=== PATIENT | male | born 1960 | race American Indian/Alaskan Native ===

== ENCOUNTER 2019-03-05 08:54 | Day surgery (SDC) | payer OTHER ==
[~2019-03-05 08:54] MED LIST: NACL 0.9% 1000 ML 1,000 ML IV SCH
--- NOTE | 2019-03-05 09:42 | Anesthesia Consultation ---
Anesthesia Consult and Med Hx Date of service: 03/05/19 - Airway Anesthetic Teeth Evaluation: Good, Partials (upper) ROM Head & Neck: Adequate Mental/Hyoid Distance: Adequate Mallampati Class: Class III Intubation Access Assessment: Possibly Difficult - Pre-Operative Health Status ASA Pre-Surgery Classification: ASA3 Proposed Anesthetic Plan: MAC - Cardiovascular System Hx Hypertension: Yes - Endocrine Hx Non-Insulin Dependent Diabetes: Yes - Other Systems Hx Obesity: Yes (BMI 36.7)
--- NOTE | 2019-03-05 09:43 | Anesthesia Day of Surgery ---
Anesthesia Day of Surgery - Day of Surgery Patient Examined: Yes Patient H&P Reviewed: Yes Patient is NPO: Yes
[2019-03-05] MEDS ORDERED: DIPRIVAN 10 MG/ML IV ONE ×2 (10:23)
[2019-03-05] MEDS ORDERED: SUBLIMAZE ONE (10:23)
--- NOTE | 2019-03-05 10:56 | Procedure Note ---
Date of procedure: 03/05/19 Pre-op diagnosis: H/O Colon Polyps/ F/H/O Cancer (sister had Ovarian Cancer(/ Colon,Polyp Scr Post-op diagnosis: other (Cecal Nickolas;yp (cold-snare polypectomy)/Small,Descending Colon Polyp/Mild to Moderate Internal Hemorrhoid) Procedure: Colonoscopy with Cold Snare Polypectomy and Cold Biopsy [place] [facility] [place]: SYBIL MONROE Estimated blood loss: minimal Pathology: list Specimen disposition: to lab Condition: stable Disposition: same day (Avoid aspirin and NSAID for 4 days, otherwise resume home medication and follow up in 1 to 2 weeks ([phone]).)
--- NOTE | 2019-03-05 11:05 | Operative Report ---
PROCEDURE: Colonoscopy with snare polypectomy and cold biopsy. INDICATIONS: This is a 58-year-old -[place] gentleman with a family history of cancer. The patient's sister had ovarian cancer. The patient gives a prior history of colon polyps. Colonoscopy was done because of his prior history of colon polyp, family history of cancer and as part of colon polyp screening. DESCRIPTION OF PROCEDURE: Procedure was done after getting informed consent with MAC anesthesia. Initial rectal exam was unremarkable. Instrument was passed through the rectum onto the cecum, which was identified by ileocecal valve and the appendiceal orifice. Visualization was fair. The scope was retroflexed in the cecum and then this withdrawn to the hepatic flexure and reintroduced into the cecum. A 10 mm sessile cecal polyp was noted that was removed by cold biopsy and retrieved. Remaining part of the cecum, ascending colon and transverse colon showed normal mucosa. A small polyp was noted in the proximal descending colon, possibly hyperplastic that was removed by cold biopsy. The remaining part of the descending and the sigmoid colon showed normal mucosa and the rectum showed mild to moderate internal hemorrhoids on the retroverted view. There was minimal bleeding from the biopsy sites. No complications associated with the procedure. ASSESSMENT: History of colon polyps, colon polyp screening, family history of cancer, the patient's sister had ovarian cancer, solitary cecal polyp removed by cold snare polypectomy and removed, small descending colon polyp removed by cold biopsy, possibly hyperplastic in type. No diverticular disease noted. Mild to moderate internal hemorrhoid on the retroverted view. There was minimal bleeding from the polypectomy and the biopsy sites. No complications associated with the procedure. The patient will be asked to resume previous medication and follow up in the office in 1-2 weeks' time and avoid aspirin and aspirin-related products for the next few days. Procedure was done in the GI lab with assistance from the anesthesia and in the presence and assistance of the GI lab team, which included RNMable and Addy raymundo along with the tech from the OR and that is interning with Annette raymundo. JOB# [id number] JULIAN/MIKO
[2019-03-05 14:21] VITALS: BP 137/86
== END 2019-03-05 08:55 | disposition home or self-care (01) ==
LOC: GIO 08:54
DX: Z12.11 Encounter for screening for malignant neoplasm of colon (principal); D12.0 Benign neoplasm of cecum; D12.4 Benign neoplasm of descending colon; K64.8 Other hemorrhoids; E11.9 Type 2 diabetes mellitus without complications; I10 Essential (primary) hypertension; E66.9 Obesity, unspecified; Z86.010 Personal history of colon polyps; Z80.41 Family history of malignant neoplasm of ovary; Z79.899 Other long term (current) drug therapy; Z79.84 Long term (current) use of oral hypoglycemic drugs; Z68.36 Body mass index [BMI] 36.0-36.9, adult
CPT/HCPCS: 82962; 88305; J2704; J3010; J7030